=== PATIENT | male | born 1990 | race African-American/Black ===

== ENCOUNTER 2019-09-12 19:30 | Emergency (ER) | payer MEDICAID, SELFPAY ==
[2019-09-12 19:31] VITALS: BP 125/73; PULSE 89; RESP 16; TEMP 36.4; O2SAT 100; BMI 23.8
--- NOTE | 2019-09-12 19:46 | ECG_ITS ---
APPROVED REPORT Exam: Resting ECG HR:74 bpm ECG Measurements Heart Rate 74 AXES DC 138 P 76 QRSd 90 QRS 66 QT 344 T 41 QTc 381 <Conclusion> Normal sinus rhythm Normal ECG Electronically signed by : Srini Meehan, 09/14/2019 14:16:49
--- NOTE | 2019-09-12 19:54 | XR_ITS ---
PROCEDURE: XR CHEST 2V CLINICAL HISTORY: dizziness COMPARISON: CXR2 CHEST-AP VIEW ONLY from 03/28/2013 FINDINGS: The cardiomediastinal silhouette and pulmonary vascularity are within normal limits. Thoracolumbar scoliosis convex right unchanged. Calcified granuloma noted in the left lower lobe. No lobar consolidation or collapse. No acute bony abnormalities. IMPRESSION: No change with no acute finding Dictated by: George Noel MD 09/12/2019 22:23 Electronically signed by George Noel MD in [place] 09/12/2019 22:23
--- NOTE | 2019-09-12 19:55 | CT_ITS ---
PROCEDURE: CT HEAD/BRAIN WO CON CLINICAL INDICATION: dizziness x2 weeks COMPARISON: HDWO CT HEAD W/O CONTRAST from 03/28/2013 TECHNIQUE: Axial images obtained. All CT scans at the facility use one or more dose reduction, viz: automated exposure control, ma/kV adjustment per patient size (including targeted exams where dose is matched to indication, i.e. head), or iterative reconstruction technique. FINDINGS: No midline shift, mass effect, intracranial hemorrhage, hydrocephalus, or extra-axial fluid collection is evident. The calvarium has an unremarkable appearance. No mastoid effusion. No sinus air-fluid level. IMPRESSION: No acute intracranial finding Dictated by: George Noel MD 09/12/2019 22:31 Electronically signed by George Noel MD in [place] 09/12/2019 22:31
[2019-09-12 20:02] LABS: Chloride 97 mmol/L (98-107); Sodium 140 mmol/L (136-145)
[2019-09-12 20:03] LABS: Basophils # 0.3 K/mm3 (0-0.2); Basophils % 3.8 % (0.1-2.0); Eosinophils # 0.3 K/mm3 (0.0-0.4); Eosinophils % 4.5 % (0.1-12.0); Lymphocytes # 1.3 K/mm3 (0.7-4.5); Lymphocytes % 19.6 % (10-50); Mean Corpuscular HGB Conc 33.3 g/dL (31.8-35.4); Mean Corpuscular Hemoglobin 30.5 pg (27.0-31.2); Mean Corpuscular Volume 91.5 fl (80-94); Mean Platelet Volume 6.8 fl (7.4-10.4); Monocytes # 0.4 K/mm3 (0.1-1.0); Monocytes % 5.9 % (1.7-9.3); Neutrophils # 4.3 K/mm3 (1.8-7.8); Neutrophils % 66.2 % (37.0-80.0); Platelet Count 339 K/mm3 (142-424); Potassium 3.1 mmoL/L (3.5-5.1); Red Blood Count 5.25 M/mm3 (4.60-6.20); Red Cell Distribution Width 12.9 % (11.5-17.5); White Blood Count 6.5 K/mm3 (4.8-10.8)
[2019-09-12 20:05] LABS: Blood Urea Nitrogen 8 mg/dl (9-20); Creatinine Clearance Estimated 112 mL/min (50-200); Estimated Glomerular Filt Rate 113 ml/min (>60); GFR (African American) 136 ML/MIN (>60)
[2019-09-12 20:06] LABS: Anion Gap 7.1 mEq/L (5-15); Carbon Dioxide 39 mmol/L (22.0-30.0); Glucose 89 mg/dl (74-100)
--- NOTE | 2019-09-12 20:15 | HMH.EDDIZZ ---
ED Disposition Clinical Impression: Benign paroxysmal positional vertigo Qualifiers: Laterality: bilateral Qualified Code(s): H81.13 - Benign paroxysmal vertigo, bilateral Disposition: Home, Self-Care Condition on Discharge: Good Instructions: Dizziness, Nonvertigo Additional Instructions: fluids and see pcp for follow up Prescriptions: Meclizine HCl [Antivert 12.5mg tablet] 12.5 mg PO TID #10 tab Transmission Status: Pending to [facility] Referrals: Gill Grimaldo APRN [Primary Care Provider] - - Critical Care Critical Care Time: No Attestation: On 09/12/19, the high probability of a clinically significant, sudden or life threatening deterioration of the following system(s) required my full and direct attention, intervention and personal management. The time I documented below is in addition to time spent performing reported procedures but includes the following listed in this critical care notation. Medical Decision Making - Medical Records Medical records reviewed: Yes: I reviewed the patient's medical records. - Aryan Inquiry Pt receiving controlled substance: No Vital Signs: 09/12/19 19:31 09/12/19 21:22 09/12/19 22:03 Temperature 97.6 F Temperature Source Oral Pulse Rate [Left Radial] 89 78 79 Respiratory Rate 16 Blood Pressure [Right Arm] 125/73 128/81 115/69 Blood Pressure Mean [Right Arm] 90 96 84 Blood Pressure Source [Right Arm] Automatic Cuff Automatic Cuff Automatic Cuff Blood Pressure Position [Right Arm] Sitting Supine Supine 02 Sat by Pulse Oximetry 100 98 100 Oxygen Delivery Method Room Air Room Air Room Air - Lab Data Lab results reviewed: Yes: I reviewed the patient's lab results. Lab Results 09/12/19 19:52: WBC 6.5, RBC 5.25, Hgb 16.0, Hct 48.0, MCV 91.5, MCH 30.5, MCHC 33.3, RDW 12.9, Plt Count 339, MPV 6.8 L, Neut % (Auto) 66.2, Lymph % (Auto) 19.6, [place] % (Auto) 5.9, Eos % (Auto) 4.5, Baso % (Auto) 3.8 H, Neut # (Auto) 4.3, Lymph # (Auto) 1.3, [place] # (Auto) 0.4, Eos # (Auto) 0.3, Baso # (Auto) 0.3 H 09/12/19 19:52: Sodium 140, Potassium 3.1 L, Chloride 97 L, Carbon Dioxide 39 H, Anion Gap 7.1, BUN 8 L, Creatinine 0.80, Estimated Creat Clear 112, Estimated GFR 113, Est GFR ( Amer) 136, Glucose 89, Calcium 9.0, Troponin I < 0.01 09/12/19 20:35: Urine Color Yellow, Urine Appearance Clear, Urine pH 6.0, Ur Specific [place] >= 1.030, Urine Protein Negative, Urine Glucose (UA) Negative, Urine Ketones Negative, Urine Blood Negative, Urine Nitrate Negative, Urine Bilirubin Negative, Urine Urobilinogen 0.2, Ur Leukocyte Esterase Negative, Urine WBC Occasional, Ur Squamous Epith Cells Occasional, Urine Bacteria Trace, Urine Mucus Trace 09/12/19 20:35: Urine Opiates Screen Negative, Urine Methadone Screen Negative, Ur Barbituates Screen Negative, Ur Phencyclidine Scrn Negative, Ur Amphetamines Screen , U Benzodiazepines Scrn Negative, Urine Cocaine Screen Negative, U Marijuana (THC) Screen Negative Result diagrams: 09/12/19 19:52 09/12/19 19:52 Orders (Tests/Meds): ED MEDICATIONS Generic Name Dose Route Start Last Admin Trade Name Freq PRN Reason Stop Dose Admin Sodium Chloride 1,000 mls @ 999 mls/hr 09/12/19 20:00 09/12/19 19:57 Sod Chlor 0.9% 1000ml Bag IV 09/12/19 21:00 999 mls/hr .Q1H1M NIKKO Administration ORDERS Category Date Time Status CT head/brain wo con Stat Cat Scan 09/12/19 19:55 Taken Troponin I Q3H Lab 09/12/19 23:00 Ordered Troponin I Q3H Lab 09/13/19 02:00 Ordered - Radiology Data #1 Image(s): Chest Image Reviewed: Yes I reviewed the patient's radiology image Preliminary Findings: Normal/NAD - CT Data CT Scan: Head Time Received: 22:[address] Reviewed: Yes: I have viewed the radiologist's interpretation Preliminary Findings: Normal/NAD - ECG Data Tracing #1 Normal Sinus Rhythm: Yes Ischemic changes: non-specific ST-T wave changes Dizzy HPI - General Chief Complaint: Dizziness Stated Complain
[2019-09-12 20:29] LABS: Troponin I < 0.01 ng/ml (0.00-0.034)
[2019-09-12 20:43] LABS: Microscopic, Urine URINE MICROSCOPIC (MICROSCOPIC)
[2019-09-12 20:45] LABS: Appearance,Urine CLEAR (Clear); Bilirubin,Urine Negative (Negative); Blood, Urine Negative (Negative); Color,Urine YELLOW (Yellow); Glucose,Urine (UA) Negative (Negative); Ketones,Urine Negative (Negative); Leukocyte Esterase,Urine Negative (Negative); Nitrate,Urine Negative (Negative); Protein,Urine Negative (Negative); Specific Gravity, Urine >= 1.030 (1.005-1.030); Urobilinogen,Urine 0.2 EU/dl (0.2)
[2019-09-12 20:57] LABS: Benzodiazepines Screen,Urine Negative ng/ml (<200)
[2019-09-12 20:59] LABS: Barbiturates Screen,Urine Negative ng/ml (<200); Cannabinoid Screen,Urine Negative ng/ml (<50)
[2019-09-12 21:00] LABS: Cocaine Screen,Urine Negative ng/ml (<300)
[2019-09-12 21:01] LABS: Methadone Screen,Urine Negative ng/ml (<300); Opiate Screen,Urine Negative ng/ml (<300)
[2019-09-12 21:02] LABS: Bacteria,Urine Trace /lpf; Mucus,Urine Trace /lpf; Phencyclidine Screen,Urine Negative ng/ml (<25); Squamous Epithelial Cell,Urine Occasional #/hpf (0-5); WBC,Urine Occasional #/hpf (0-3)
[2019-09-12 21:22] VITALS: BP 128/81; PULSE 78; O2SAT 98
[2019-09-12 22:03] VITALS: BP 115/69; PULSE 79; O2SAT 100
[2019-09-12 22:48] VITALS: BP 132/74; PULSE 83; RESP 16; TEMP 36.7; O2SAT 98
[2019-09-16 15:09] LABS: Amphetamine Positive (.); Amphetamines Positive (.); Methamphetamine Positive (.)
[2019-09-17 15:35] LABS: Amphetamine (GC/MS) >4000 ng/mL (Cutoff=500); Methamphetamine (GC/MS) >4000 ng/mL (Cutoff=500)
== END 2019-09-12 22:50 | disposition home or self-care (01) ==
PROVIDERS: Emergency Provider Emergency Medicine; PCP Nurse Practitioner
DX: H81.13 Benign paroxysmal vertigo, bilateral (principal)
CPT/HCPCS: 70450; 71046; 80048; 80305; 80324; 81001; 84484; 85025; 93005; 96365; 99284

== ENCOUNTER 2020-11-27 20:47 | Emergency (ER) | payer MEDICAID, SELFPAY ==
[2020-11-27 20:48] VITALS: BP 130/80; PULSE 100; RESP 18; TEMP 36.6; O2SAT 100; BMI 21.6
--- NOTE | 2020-11-27 21:39 | HMH.EDMCLR ---
ED Disposition Clinical Impression: Medical clearance for incarceration Disposition: Home, Self-Care Condition on Discharge: Good Instructions: DI for Substance Use Disorder Additional Instructions: see pcp for follow up Referrals: Lucero Myers APRN [Primary Care Provider] - - Critical Care Critical Care Time: No Attestation: On 11/27/20, the high probability of a clinically significant, sudden or life threatening deterioration of the following system(s) required my full and direct attention, intervention and personal management. The time I documented below is in addition to time spent performing reported procedures but includes the following listed in this critical care notation. Medical Decision Making - Medical Records Medical records reviewed: Yes: I reviewed the patient's medical records. - Aryan Inquiry Pt receiving controlled substance: No Vital Signs: 11/27/20 20:48 Temperature 97.8 F Temperature Source Oral Pulse Rate [Right] 100 H Respiratory Rate 18 Blood Pressure [Right Arm] 130/80 Blood Pressure Mean [Right Arm] 96 02 Sat by Pulse Oximetry 100 Medical Clearance HPI - General Chief complaint: Medical Clearance Stated complaint: mEDICAL CLEARANCE Time Seen by Provider: 11/27/20 21:39 Mode of Arrival: Ambulatory Source of Information: Patient, Medical Record Description of Symptoms (Recalled from ER Triage Doc. by RN): pt here for medical clerance pt has a spider bite from 2 days ago on back of lt calf - History of Present Illness HPI Narrative: no specific c/o except small area on lt lower leg - reported as insect bite MD complaint: medical clearance requested Reason for Medical Clearance: medical condition Place: home Traumatic Symptoms: denies traumatic injury Associated Symptoms: denies other symptoms Treatments Prior to Arrival: none Home medications: Previous Rx's Medication Instructions Recorded amoxicillin 875 mg-potassium 1 tab PO Q12H 10 Days #20 tab 05/08/20 clavulanate 125 mg tablet Allergies/Adverse reactions: Allergies Allergy/AdvReac Type Severity Reaction Status Date / Time levofloxacin [From LEVAQUIN] Allergy Intermediate I-RASH Verified 05/08/20 18:33 Milk Containing Products Allergy Verified 05/08/20 18:33 [facility] History - Hepatitis A Screen Drug use history?: No High risk sexual behaviors?: No History of sexually transmitted infection?: No Currently employed?: No Childcare worker?: No Do you have indoor plumbing?: Yes Do you have electricity?: Yes Attestation statement:: This patient has been screened for Hepatitis A risk factors. I have reviewed the patient's past medical history: Yes Medical History: Denies:: Cancer, Diabetes Mellitus Type 1, Diabetes Mellitus Type 2, MRSA Other Surgeries: Yes: Colonoscopy Amputation: No Fractures: No - Social History Smoking Status: Current every day smoker Tobacco Type: cigarettes # Packs/Day (cigarettes): 1 Alcohol Intake: never Alcohol Intake Frequency:: a few times a week Substance Use Type: denies use Occupational Status: employed Family Hx:: Non-contributory ROS Obtained: Yes All systems reviewed & no additional complaints - Constitutional Constitutional: Denies fever(s) - Eyes Eyes: Denies change in vision - ENT Ears, Nose, Mouth, and Throat: Denies sore throat - Cardiovascular Cardiovascular: Denies chest pain, Denies dyspnea - Respiratory Respiratory: Denies shortness of breath - Gastrointestinal Gastrointestingal: Denies: abdominal pain - Genitourinary Male Genitourinary: Denies flank pain - Musculoskeletal Musculoskeletal: Denies joint pain - Integumentary/Breasts Skin/Breast: Reports as per HPI, Reports boil - Neurologic Neurologic: Denies headache(s), Denies seizure-like activity Physical Exam - General General appearance: alert - Head Head exam: normocephalic - Eye Eye exam: Present: PERRL, EOMI - ENT ENT exam: Present: muc
[2020-11-27 21:52] VITALS: BP 125/79; PULSE 97; RESP 18; TEMP 36.6; O2SAT 100
== END 2020-11-27 21:54 | disposition home or self-care (01) ==
PROVIDERS: Emergency Provider Emergency Medicine; PCP Nurse Practitioner Family
DX: S80.862A Insect bite (nonvenomous), left lower leg, initial encounter (principal); W57.XXXA Bitten or stung by nonvenomous insect and other nonvenomous arthropods, initial encounter
CPT/HCPCS: 99282

== ENCOUNTER 2021-03-28 02:38 | Emergency (ER) | payer MEDICAID, SELFPAY ==
[2021-03-28 02:41] VITALS: BP 133/81; PULSE 108; RESP 16; TEMP 36.6; O2SAT 98; BMI 21.4
[2021-03-28 03:33] LABS: Basophils # 0.1 K/mm3 (0-0.2); Eosinophils # 0.3 K/mm3 (0.0-0.4); Eosinophils % 3.5 % (0.1-12.0); Hematocrit 42.1 % (42.0-52.0); Hemoglobin 13.4 g/dL (14.1-18.0); Lymphocytes # 1.8 K/mm3 (0.7-4.5); Lymphocytes % 23.9 % (10-50); Mean Corpuscular HGB Conc 31.7 g/dL (31.8-35.4); Mean Corpuscular Hemoglobin 27.8 pg (27.0-31.2); Mean Corpuscular Volume 87.6 fl (80-94); Mean Platelet Volume 7.3 fl (7.4-10.4); Monocytes # 0.4 K/mm3 (0.1-1.0); Monocytes % 5.6 % (1.7-9.3); Neutrophils % 66.1 % (37.0-80.0); Platelet Count 505 K/mm3 (142-424); Red Blood Count 4.81 M/mm3 (4.60-6.20); Red Cell Distribution Width 13.6 % (11.5-17.5); White Blood Count 7.6 K/mm3 (4.8-10.8)
[2021-03-28 03:39] LABS: Alanine Aminotransferase 17 U/L (12-78); Albumin Level 3.8 g/dl (3.5-5.0); Albumin/Globulin Ratio 1.1 (1.1-1.8); Alkaline Phosphatase 80 U/L (38-126); Anion Gap 9.8 mEq/L (5-15); Aspartate Amino Transferase 25 U/L (17-59); Blood Urea Nitrogen 12 mg/dl (9-20); Calcium 9.5 mg/dl (8.4-10.2); Carbon Dioxide 32 mmol/L (22.0-30.0); Chloride 100 mmol/L (98-107); Creatinine Clearance Estimated 94 mL/min (50-200); Estimated Glomerular Filt Rate 98 ml/min (>60); GFR (African American) 118 ML/MIN (>60); Globulin 3.5 g/dL (1.3-3.2); Glucose 127 mg/dl (74-100); Potassium 3.8 mmoL/L (3.5-5.1); Sodium 138 mmol/L (136-145); Total Protein,Serum 7.3 g/dl (6.3-8.2)
[2021-03-28 03:43] LABS: Bilirubin,Total < 0.1 mg/dl (0.2-1.3)
[2021-03-28 03:44] LABS: C-Reactive Protein 6.8 mg/L (0-4)
--- NOTE | 2021-03-28 03:49 | HMH.EDGENADL ---
ED Disposition Clinical Impression: Pyoderma gangrenosum Disposition: Home, Self-Care Condition on Discharge: Good Additional Instructions: Use topical steroid as prescribed. Follow-up with GI, dermatology, and surgery along with your primary care doctor. Return to the emergency department for any new or worsening symptoms. Prescriptions: Clobetasol Propionate/Emoll [Clobetasol Emollient 0.05% Crm] 60 gm TP BID #60 gm Transmission Status: Pending to [facility] Referrals: Provider,MD Bibi [Primary Care Provider] - Jagdeep Rae MD [Staff Physician] - Becky Ross MD [Referring] - Alverto Maldonado MD [Staff Physician] - - Critical Care Critical Care Time: No Attestation: On 03/28/21, the high probability of a clinically significant, sudden or life threatening deterioration of the following system(s) required my full and direct attention, intervention and personal management. The time I documented below is in addition to time spent performing reported procedures but includes the following listed in this critical care notation. Medical Decision Making - Aryan Inquiry Pt receiving controlled substance: No Vital Signs: 03/28/21 02:41 Temperature 98 F Temperature Source Oral Pulse Rate [Left] 108 H Respiratory Rate 16 Blood Pressure [Right Arm] 133/81 Blood Pressure Mean [Right Arm] 98 02 Sat by Pulse Oximetry 98 - Lab Data Lab Results 03/28/21 03:19: WBC 7.6, RBC 4.81, Hgb 13.4 L, Hct 42.1, MCV 87.6, MCH 27.8, MCHC 31.7 L, RDW 13.6, Plt Count 505 H, MPV 7.3 L, Neut % (Auto) 66.1, Lymph % (Auto) 23.9, [place] % (Auto) 5.6, Eos % (Auto) 3.5, Baso % (Auto) 1.0, Neut # (Auto) 5.0, Lymph # (Auto) 1.8, [place] # (Auto) 0.4, Eos # (Auto) 0.3, Baso # (Auto) 0.1, ESR 13 03/28/21 03:19: Sodium 138, Potassium 3.8, Chloride 100, Carbon Dioxide 32 H, Anion Gap 9.8, BUN 12, Creatinine 0.90, Estimated Creat Clear 94, Estimated GFR 98, Est GFR ( Amer) 118, Glucose 127 H, Calcium 9.5, Total Bilirubin < 0.1 L, AST 25, ALT 17, Alkaline Phosphatase 80, C-Reactive Protein 6.8 H, Total Protein 7.3, Albumin 3.8, Globulin 3.5 H, Albumin/Globulin Ratio 1.1 Result diagrams: 03/28/21 03:19 03/28/21 03:19 Medical Decision Narrative: In summary this is a 30-year-old male with history of ulcerative colitis who presents to the emergency department for concern for infection of spider bite on left lower leg. Differential diagnosis includes cellulitis, abscess, spider bite, skin manifestation of UC. Given this plan to obtain CBC, CMP, CRP and reassess. CRP very mildly elevated however the patient has no leukocytosis and labs are otherwise unremarkable. The patient's physical exam is concerning for pyoderma gangrenosum. He also complains of swelling in his hands concerning for arthritis related to UC. The patient has not seen a occupational therapy director since high school. Given this we will refer him to GI as well as dermatology and surgery for evaluation of this wound. We will also give topical steroids. All this was discussed with the patient and his questions were answered. He was given strict return precautions and discharged. General Adult HPI - General Chief complaint: Allergic Reaction Stated complaint: Infected Spider bite left leg Time Seen by Provider: 03/28/21 02:50 Mode of Arrival: Ambulatory Limitations: No Limitations Description of Symptoms (Recalled from ER Triage Doc. by RN): pt reports he was bit by a spider on his left leg a few days ago was seen at the [facility]. pt states they told him to come here to recieve antibiodic via iv. pt does have a large area that does appear inflamed red hot and the skin is scabbed over. pt also reports to have swollen hands - History of Present Illness HPI narrative: The patient is a 30-year-old male with history of ulcerative colitis who presents to the emergency department with spider bite to his left lower extremity. He reports that he received a spider bi
[2021-03-28 04:05] LABS: Erythrocyte Sedimentation Rate 13 mm/hr (0-15)
[2021-03-28 04:30] VITALS: BP 133/71; PULSE 112; RESP 16; TEMP 36.6; O2SAT 97
== END 2021-03-28 04:32 | disposition home or self-care (01) ==
PROVIDERS: Emergency Provider Emergency Medicine
DX: L88 Pyoderma gangrenosum (principal); K51.90 Ulcerative colitis, unspecified, without complications; F17.210 Nicotine dependence, cigarettes, uncomplicated
CPT/HCPCS: 80053; 85025; 85651; 86140; 99281

== ENCOUNTER 2021-05-14 22:11 | Emergency (ER) | payer MEDICAID, SELFPAY ==
[2021-05-14 22:14] VITALS: BP 169/93; PULSE 121; RESP 16; TEMP 36.9; O2SAT 98; BMI 22.3
[2021-05-14 22:45] LABS: Basophils # 0.1 K/mm3 (0-0.2); Eosinophils # 0.1 K/mm3 (0.0-0.4); Hematocrit 35.6 % (42.0-52.0); Hemoglobin 11.1 g/dL (14.1-18.0); Monocytes # 0.5 K/mm3 (0.1-1.0)
[2021-05-14 22:50] LABS: Basophils % 0.8 % (0.1-2.0); Eosinophils % 1.5 % (0.1-12.0); Lymphocytes # 1.6 K/mm3 (0.7-4.5); Lymphocytes % 17.3 % (10-50); Mean Corpuscular HGB Conc 31.1 g/dL (31.8-35.4); Mean Corpuscular Hemoglobin 26.6 pg (27.0-31.2); Mean Corpuscular Volume 85.5 fl (80-94); Mean Platelet Volume 7.7 fl (7.4-10.4); Monocytes % 5.1 % (1.7-9.3); Neutrophils # 6.8 K/mm3 (1.8-7.8); Neutrophils % 75.2 % (37.0-80.0); Platelet Count 739 K/mm3 (142-424); Red Blood Count 4.16 M/mm3 (4.60-6.20); White Blood Count 9.1 K/mm3 (4.8-10.8)
[2021-05-14 22:51] LABS: Alanine Aminotransferase 22 U/L (12-78); Albumin Level 3.8 g/dl (3.5-5.0); Alkaline Phosphatase 86 U/L (38-126); Anion Gap 9.4 mEq/L (5-15); Aspartate Amino Transferase 28 U/L (17-59); Bilirubin,Total 0.3 mg/dl (0.2-1.3); Blood Urea Nitrogen 12 mg/dl (9-20); Calcium 9.2 mg/dl (8.4-10.2); Carbon Dioxide 31 mmol/L (22.0-30.0); Chloride 101 mmol/L (98-107); Creatinine Clearance Estimated 98 mL/min (50-200); Estimated Glomerular Filt Rate 98 ml/min (>60); GFR (African American) 118 ML/MIN (>60); Globulin 3.8 g/dL (1.3-3.2); Glucose 115 mg/dl (74-100); Potassium 3.4 mmoL/L (3.5-5.1); Sodium 138 mmol/L (136-145); Total Protein,Serum 7.6 g/dl (6.3-8.2)
[2021-05-14 22:52] LABS: Lactic Acid 0.8 mmol/L (0.7-2.1)
[2021-05-14 22:56] LABS: C-Reactive Protein 13.2 mg/L (0-4)
[2021-05-14 23:08] VITALS: BP 136/88; PULSE 119; O2SAT 99
[2021-05-14 23:10] LABS: Procalcitonin 0.211 ng/mL (0.0-2.0)
[2021-05-14 23:11] LABS: Erythrocyte Sedimentation Rate 54 mm/hr (0-15)
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
--- NOTE | 2021-05-14 23:53 | XR_ITS ---
PROCEDURE INFORMATION: Exam: XR Chest Exam date and time: 05/14/2021 11:53 PM Age: 30 years old Clinical indication: Other: Possible infection/sepsis TECHNIQUE: Imaging protocol: XR of the chest. Views: 2 views. COMPARISON: CR XR CHEST 2V 09/12/2019 7:55 PM FINDINGS: Lungs: Calcified granulomas in the left lung. No consolidation. No overt pulmonary edema. Pleural spaces: No pleural effusion. No pneumothorax. Heart/Mediastinum: Normal heart size. Bones/joints: Scoliosis, with a marked dextroconvex rotatory thoracic curvature, as seen previously. IMPRESSION: No acute finding. No interval change since 09/12/2019.
--- NOTE | 2021-05-15 00:03 | PC.NURSE ---
Pt gone to rad
[2021-05-15 00:06] LABS: Microscopic, Urine URINE MICROSCOPIC (MICROSCOPIC)
[2021-05-15 00:07] LABS: Appearance,Urine SL CLOUDY (Clear); Blood, Urine Negative (Negative); Color,Urine YELLOW (Yellow); Glucose,Urine (UA) Negative (Negative); Ketones,Urine TRACE (Negative); Leukocyte Esterase,Urine Negative (Negative); Nitrate,Urine Negative (Negative); Protein,Urine 1+ (Negative); Specific Gravity, Urine >= 1.030 (1.005-1.030); Urobilinogen,Urine 0.2 EU/dl (0.2)
--- NOTE | 2021-05-15 00:08 | PC.NURSE ---
Pt back from rad
[2021-05-15 00:15] LABS: Bacteria,Urine 2+ /lpf; Bilirubin,Urine Negative (Negative); Mucus,Urine 3+ /lpf; Sperm,Urine 1+ /lpf; Squamous Epithelial Cell,Urine Occasional #/hpf (0-5)
[2021-05-15 00:18] LABS: Barbiturates Screen,Urine Negative ng/ml (<200); Benzodiazepines Screen,Urine Negative ng/ml (<200)
[2021-05-15 00:19] LABS: Cannabinoid Screen,Urine Negative ng/ml (<50); Cocaine Screen,Urine Negative ng/ml (<300)
[2021-05-15 00:20] LABS: Methadone Screen,Urine Negative ng/ml (<300)
[2021-05-15 00:21] LABS: Opiate Screen,Urine Negative ng/ml (<300)
[2021-05-15 00:22] LABS: Phencyclidine Screen,Urine Negative ng/ml (<25)
[2021-05-15 01:24] VITALS: BP 135/79; PULSE 113; RESP 18; TEMP 36.7; O2SAT 98
[2021-05-28 08:15] LABS: Amphetamine Positive (.); Amphetamine (GC/MS) >3000 ng/mL (Cutoff=500); Amphetamines Positive (.); Methamphetamine Positive (.); Methamphetamine (GC/MS) >3000 ng/mL (Cutoff=500)
== END 2021-05-15 01:46 | disposition home or self-care (01) ==
PROVIDERS: Emergency Provider Emergency Medicine
DX: B34.2 Coronavirus infection, unspecified (principal); F15.10 Other stimulant abuse, uncomplicated; L03.114 Cellulitis of left upper limb; L03.113 Cellulitis of right upper limb; L03.116 Cellulitis of left lower limb; F17.210 Nicotine dependence, cigarettes, uncomplicated
CPT/HCPCS: 71046; 80053; 80305; 80324; 81001; 83605; 84145; 85025; 85651; 86140; 87040; 87086; 99283; C9803; U0003; U0005

== ENCOUNTER 2022-11-24 09:10 | Emergency (ER) | payer MEDICAID, SELFPAY ==
[2022-11-24 09:11] VITALS: BP 144/96; PULSE 98; RESP 18; TEMP 36.6; O2SAT 100; BMI 24.9
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
[2022-11-24 10:36] VITALS: BP 144/96; PULSE 98; RESP 18; TEMP 36.6; O2SAT 100
== END 2022-11-24 10:36 | disposition home or self-care (01) ==
PROVIDERS: Emergency Provider Nurse Practitioner Family
DX: S09.90XA Unspecified injury of head, initial encounter (principal); R51.9 Headache, unspecified; Y04.2XXA Assault by strike against or bumped into by another person, initial encounter; F17.210 Nicotine dependence, cigarettes, uncomplicated
CPT/HCPCS: 70150; 99204; 99212; G0463

== ENCOUNTER 2022-12-13 21:43 | Emergency (ER) | payer MEDICAID, SELFPAY ==
[2022-12-13 21:44] VITALS: BP 129/86; PULSE 113; RESP 18; TEMP 36.8; O2SAT 98; BMI 24.9
--- NOTE | 2022-12-13 22:02 | HMH.EDGENADL ---
Discharge Plan Disposition Patient Disposition: Home, Self-Care Condition: Good Chief Complaint: Eye Problems Prescriptions Prescriptions: No Action clindamycin HCl 300 MG capsule 300 mg PO TID ibuprofen 800 MG tablet 800 mg PO Q8HP PRN (Reason: Moderate Pain) sulfamethoxazole-trimethoprim 1 EACH tablet 1 each PO BID acetaminophen 500 MG tablet 500 mg PO Q6 methocarbamol 750 MG tablet 750 mg PO TID melatonin-pyridoxine (vit B6) 1 EACH tablet 1 each PO HS lofexidine 0.18 MG tablet 3 tab PO TID Referrals Follow up/Referrals: David Saeed OD [Referring] - See instructions Clinical Impressions Clinical Impression: Acute bacterial conjunctivitis of left eye Instructions Patient Instructions: Conjunctivitis Discharge ED Provider: Azam Mccartney General Adult HPI General Chief complaint: Eye Problems Stated complaint: eye infection Time Seen by Provider: 12/13/22 21:52 History of Present Illness HPI narrative: 32-year-old male with a history of gout, rheumatoid arthritis, UC who presents to the ED with complaints of left eye pain. Patient notes that he left his contacts and for several days prior to removing it yesterday. This morning, patient woke up and since then he has been having progressively worsening pain in his left eye, with associated erythema, chemosis, and photophobia. Patient notes that his symptoms progressively worsened through the day, which made him come to the ED tonight. Related Data Home Medications Medication Instructions Recorded Confirmed acetaminophen 500 mg tablet 500 mg PO Q6 Pain 05/14/21 05/14/21 clindamycin HCl 300 mg capsule 300 mg PO TID Infection 05/14/21 05/14/21 ibuprofen 800 mg tablet 800 mg PO Q8HP PRN Moderate Pain 05/14/21 05/14/21 lofexidine 0.18 mg tablet 3 tab PO TID detox 05/14/21 05/14/21 melatonin 5 mg-pyridoxine (vitamin 1 each PO HS sleep 05/14/21 05/14/21 B6) 1 mg tablet methocarbamol 750 mg tablet 750 mg PO TID muscle pain 05/14/21 05/14/21 sulfamethoxazole 800 1 each PO BID Infection 05/14/21 05/14/21 mg-trimethoprim 160 mg tablet Allergies Allergy/AdvReac Type Severity Reaction Status Date / Time levofloxacin [From LEVAQUIN] Allergy Intermediate I-RASH Verified 03/26/21 12:32 Milk Containing Products Allergy Verified 03/26/21 12:32 (Dairy) [Milk Containing Products] [facility] Disclaimer: The information contained in this section may have been updated after the patient was seen, as this information can be updated by other users. Social History Smoking Status: Current every day smoker tobacco type: cigarettes packs per day: 1 alcohol intake: never substance use type: denies use current occupational status: other Travel in the last 8 weeks: None ROS Obtained: Yes All systems reviewed & no additional complaints except as documented Physical Exam General General appearance: alert and in no apparent distress Head Head exam: atraumatic, normocephalic and normal inspection Eye Eye exam: Present normal appearance, PERRL, EOMI and conjunctival redness (Left eye chemosis and conjunctivitis); Absent scleral icterus or nystagmus ENT ENT exam: Present normal exam, mucous membranes moist and normal external ear exam Neck Neck exam: Present normal inspection, full ROM and trachea midline Chest Chest inspection: Present normal inspection and symmetric chest wall rise; Absent tenderness Respiratory Respiratory exam: Present normal lung sounds bilaterally; Absent respiratory distress, wheezes or accessory muscle use Cardiovascular Cardiovascular exam: Present regular rate, normal rhythm and normal heart sounds Abdominal Exam Abdominal exam: Present soft; Absent distention, tenderness, guarding, rebound, rigidity, trauma, ascites or pulsatile mass exam: Present deferred Extremities Exam Extremities exam: Present normal inspection and full ROM; Absent tenderness Back Exam B
[2022-12-13 22:30] VITALS: BP 137/85; PULSE 78; RESP 20; O2SAT 100
[2022-12-13 22:56] VITALS: BP 131/72; PULSE 71; RESP 18; TEMP 36.8; O2SAT 100
== END 2022-12-13 22:57 | disposition home or self-care (01) ==
PROVIDERS: Emergency Provider Emergency Medicine
DX: H10.31 Unspecified acute conjunctivitis, right eye (principal); M06.9 Rheumatoid arthritis, unspecified; M10.9 Gout, unspecified; F17.210 Nicotine dependence, cigarettes, uncomplicated
CPT/HCPCS: 99283

== ENCOUNTER 2023-02-10 14:42 | Emergency (ER) | payer MEDICAID, SELFPAY ==
[2023-02-10 15:00] VITALS: BP 140/87; PULSE 86; RESP 18; TEMP 36.8; O2SAT 100; BMI 24.0
--- NOTE | 2023-02-10 15:00 | EXP.UTC ---
Discharge Plan Disposition Patient Disposition: Home, Self-Care Condition: Good Prescriptions Prescriptions: New sulfamethoxazole-trimethoprim [Bactrim DS] 800-160 mg Tablet 1 tab PO BID Qty: 20 0RF cephalexin 500 mg capsule 500 mg PO QID Qty: 40 0RF mupirocin 2 % ointment 1 applic topical TID 7 Days Qty: 15 0RF Referrals Follow up/Referrals: Provider,Referral, MD [Primary Care Provider] - See instructions Activity Restrictions/Add. Instructions Additional Instructions/Restrictions: Keep the affected area clean and dry. Follow up with your regular doctor. Take the antibiotics as directed and apply the topical antibiotics as directed. GO TO THE ER FOR ANY WORSENING SYMPTOMS Clinical Impressions Clinical Impression: Abscess of left thumb, Cellulitis of left thumb Instructions Patient Instructions: Cellulitis, DI for Skin Abscess Discharge ED Provider: Dave Logan [facility] [place] General Stated complaint: AO10/@work, possible infected Lt thumb Time Seen by Provider: 02/10/23 15:00 History of Present Illness Provider Complaint: He states around 1 week ago he accidentally cut himself with a saw on his left thumb. It was a small cut, but since then it has began to swell and have redness surrounding it. He denies fever/chills. He is not a known diabetic. Related Data Previous Rx's Medication Instructions Recorded cephalexin 500 mg capsule 500 mg PO QID #40 caps 02/10/23 mupirocin 2 % topical ointment 1 applic topical TID 7 days #15 02/10/23 grams sulfamethoxazole 800 1 tab PO BID #20 tabs 02/10/23 mg-trimethoprim 160 mg tablet (Bactrim DS) Allergies Allergy/AdvReac Type Severity Reaction Status Date / Time levofloxacin [From LEVAQUIN] Allergy Intermediate I-RASH Verified 02/10/23 15:04 Milk Containing Products Allergy Verified 02/10/23 15:04 (Dairy) [Milk Containing Products] [facility] Disclaimer: The information contained in this section may have been updated after the patient was seen, as this information can be updated by other users. Social History Smoking Status: Current every day smoker tobacco type: cigarettes packs per day: 1 alcohol intake: never substance use type: denies use current occupational status: other Travel in the last 8 weeks: None ROS Obtained: Yes All systems reviewed & no additional complaints except as documented Constitutional Constitutional: Denies chills and Denies fever(s) Eyes Eyes: Denies eye discharge ENT Ears, Nose, Mouth, and Throat: Denies dizziness, Denies otalgia and Denies sore throat Cardiovascular Cardiovascular: Denies chest pain Respiratory Respiratory: Denies shortness of breath, Denies chest congestion, Denies cough, Denies stridor and Denies wheezing Gastrointestinal Gastrointestingal: Denies nausea or vomiting Musculoskeletal Musculoskeletal: Reports system reviewed and no additional complaints, except as documented and Denies arthralgias Integumentary/Breasts Skin/Breast: Reports as per HPI Neurologic Neurologic: Denies dizziness and Denies paresthesias Allergic/Immunologic Allergic/Immunologic: Denies wheezing Physical Exam General General appearance: alert and in no apparent distress Head Head exam: atraumatic, normocephalic and normal inspection Eye Eye exam: Present normal appearance, PERRL and EOMI ENT ENT exam: Present normal exam, normal oropharynx, mucous membranes moist, TM's normal bilaterally and normal external ear exam Neck Neck exam: Present normal inspection, full ROM and trachea midline; Absent meningismus or lymphadenopathy Chest Chest inspection: Present normal inspection and symmetric chest wall rise; Absent tenderness Respiratory Respiratory exam: Present normal lung sounds bilaterally; Absent respiratory distress Cardiovascular Cardiovascular exam: Present regular rate and normal rhythm; Absent JVD Abdominal Exam Abd
[2023-02-10 16:00] VITALS: BP 140/87; PULSE 86; RESP 18; TEMP 36.8; O2SAT 100
== END 2023-02-10 16:00 | disposition home or self-care (01) ==
PROVIDERS: Emergency Provider Nurse Practitioner Family
DX: L02.512 Cutaneous abscess of left hand (principal); B95.62 Methicillin resistant Staphylococcus aureus infection as the cause of diseases classified elsewhere; L03.012 Cellulitis of left finger; F17.210 Nicotine dependence, cigarettes, uncomplicated; B96.89 Other specified bacterial agents as the cause of diseases classified elsewhere
CPT/HCPCS: 87070; 87205; 96372; 99212; 99214; G0463; J0696

== ENCOUNTER 2023-07-06 13:30 | Emergency (ER) | payer MEDICAID, SELFPAY ==
[2023-07-06 13:50] VITALS: PULSE 103; RESP 20; TEMP 36.8; O2SAT 97; BMI 23.3
--- NOTE | 2023-07-06 13:58 | EXP.UTC ---
Discharge Plan Disposition Patient Disposition: Home, Self-Care Condition: Good Prescriptions Prescriptions: New azithromycin [Zithromax] 250 mg tablet 250 mg PO UD DOSE PK Qty: 6 0RF Rx Instructions: Take two (2) tablets today, then one (1) tablet days #2 thru #5 methylprednisolone 4 mg Tablets,Dose Pack 4 mg PO DIRECTED 6 Days Qty: 21 0RF Rx Instructions: Take 1 pack as directed for 6 days No Action buprenorphine-naloxone 8-2 mg tablet, sublingual 1 tab SUBLINGUAL DAILY Patient Comments: Place 1 tablet under tongue once a day Referrals Follow up/Referrals: Provider,Referral, MD [Primary Care Provider] - See instructions Activity Restrictions/Add. Instructions Additional Instructions/Restrictions: Drink plenty of fluids. Take tylenol or ibuprofen for pain or fever. Take the medications as directed. Follow up with your regular doctor. GO TO THE ER FOR ANY WORSENING SYMPTOMS Clinical Impressions Clinical Impression: Acute viral syndrome, Acute bronchitis Stand Alone Forms Stand Alone Forms: Work/School Release Instructions Patient Instructions: DI for Acute Bronchitis, DI for Viral Syndrome Discharge ED Provider: Dave Logan [facility] General Stated complaint: BONNER, soa Mode of Arrival: Ambulatory Source of Information: Patient Limitations: No Limitations Time Seen by Provider: 07/06/23 13:58 Description of Symptoms (Recalled from Triage Doc. by RN): PATIENT C/O SOA, BODY ACHES, RUNNY NOSE, COUGH AND SWEATS THAT STARTED YESTERDAY AFTERNOON HEENT Symptoms (Recalled from RN notes): Yes Resp Symptoms (Recalled from RN notes): Yes Skin Symptoms (Recalled from RN notes): No MS Symptoms (Recalled from RN notes): No Functional Status (Recalled from RN notes): WNL History of Present Illness Provider Complaint: He states that for the past 2 days he has had sore throat, low grade fever, malaise, cough, and chest congestion. Related Data Home Medications Medication Instructions Recorded Confirmed buprenorphine 8 mg-naloxone 2 mg 1 tab sublingual DAILY 07/06/23 07/06/23 sublingual tablet Previous Rx's Medication Instructions Recorded azithromycin 250 mg tablet 250 mg PO UD DOSE PK #6 tabs 07/06/23 (Zithromax) methylprednisolone 4 mg tablets in 4 mg PO DIRECTED 6 days #21 tabs 07/06/23 a dose pack Allergies Allergy/AdvReac Type Severity Reaction Status Date / Time levofloxacin [From LEVAQUIN] Allergy Intermediate I-RASH Verified 02/10/23 15:04 Milk Containing Products Allergy Verified 02/10/23 15:04 (Dairy) [Milk Containing Products] Worker's Comp Is this a Worker's Comp case?: No [facility] Disclaimer: The information contained in this section may have been updated after the patient was seen, as this information can be updated by other users. Social History Smoking Status: Current every day smoker tobacco type: cigarettes packs per day: 1 alcohol intake: never substance use type: denies use current occupational status: other Travel in the last 8 weeks: None ROS Obtained: Yes All systems reviewed & no additional complaints except as documented Constitutional Constitutional: Reports chills and Reports fever(s) Eyes Eyes: Denies eye discharge ENT Ears, Nose, Mouth, and Throat: Reports as per HPI Cardiovascular Cardiovascular: Denies chest pain Respiratory Respiratory: Reports chest congestion and Reports cough Gastrointestinal Gastrointestingal: Reports nausea; Denies abdominal pain, constipation, cramping, diarrhea or vomiting Musculoskeletal Musculoskeletal: Denies arthralgias Integumentary/Breasts Skin/Breast: Denies rash Neurologic Neurologic: Denies paresthesias Physical Exam General General appearance: alert and in no apparent distress Eye Eye exam: Present normal appearance, PERRL and EOMI ENT ENT exam: Present mucous membranes moist and normal external ear exam Expanded ENT Exam External ear exam: Present normal external inspection TM/Canal exam: Bilateral TM: erythema and bulging Nose exam: Absent sinus tenderness Nasal speculum exam: Bilateral: normal Mouth exam: Present normal external inspection; Absent drooling Teeth exam: Present normal inspection Throat exam: Present tonsillar erythema and tonsillomegaly Neck Neck exam: Present normal inspection, full ROM and trachea midline; Absent tenderness, lymphadenopathy or thyromegaly Chest Chest inspection: Present normal inspection and symmetric chest wall rise; Absent tenderness or rash Respiratory Respiratory exam: Present normal lung sounds bilaterally; Absent respiratory distress, wheezes, stridor or accessory muscle use Cardiovascular Cardiovascular exam: Present regular rate, normal rhythm and normal heart sounds Abdominal Exam Abdominal exam: Present soft; Absent distention, tenderness, guarding, rebound or rigidity Extremities Exam Extremities exam: Present normal inspection, full ROM and normal capillary refill; Absent tenderness or calf tenderness Back Exam Back exam: Present normal inspection and full ROM; Absent tenderness Neurological Exam Neurological exam: Present alert and oriented X3 Psychiatric Psychiatric exam: Present normal affect and normal mood Skin Skin exam: Present warm, dry, intact and normal color Lymphatic Lymphatic Findings: no adenopathy Medical Decision Making Medical Records Medical records reviewed: No I reviewed the patient's medical records. Aryan Inquiry Pt receiving controlled substance: No Vital Signs: 07/06/23 13:50 Temperature 98.3 F Temperature Source Oral Pulse Rate [Right] 103 H Respiratory Rate 20 02 Sat by Pulse Oximetry 97 Oxygen Delivery Method Room Air Lab Data Lab results reviewed: Yes I reviewed the patient's lab results.
[2023-07-06 14:09] LABS: UTC Influenza A Antigen Negative (Negative); UTC Influenza B Antigen Negative (Negative)
[2023-07-06 14:27] VITALS: BP 0/0; PULSE 103; RESP 20; TEMP 36.8; O2SAT 97
[2023-07-06 14:41] LABS: Coronavirus 19, PCR Not Detected (NotDetected); Influenza A, PCR Not Detected (NotDetected); Influenza B, PCR Not Detected (NotDetected)
== END 2023-07-06 14:36 | disposition home or self-care (01) ==
PROVIDERS: Emergency Provider Nurse Practitioner Family
DX: J20.9 Acute bronchitis, unspecified (principal); R50.9 Fever, unspecified; R07.0 Pain in throat; R05.9 Cough, unspecified; B34.9 Viral infection, unspecified; F17.210 Nicotine dependence, cigarettes, uncomplicated
CPT/HCPCS: 87636; 87804; 99212; 99214; G0463

== ENCOUNTER 2023-07-24 16:33 | Emergency (ER) | payer MEDICAID, SELFPAY ==
[2023-07-24 17:30] VITALS: BP 113/78; PULSE 78; RESP 18; TEMP 36.4; O2SAT 100; BMI 25.7
--- NOTE | 2023-07-24 17:33 | ED_ITS ---
Discharge Plan Disposition Patient Disposition: Home, Self-Care Condition: Good Prescriptions Prescriptions: New ondansetron 4 mg Tablet,Disintegrating 4 mg PO Q8H PRN (Reason: Nausea) Qty: 12 0RF No Action bupropion HCl [Wellbutrin XL] 150 mg tablet extended release 24 hr 150 mg PO DAILY Patient Comments: Take 1 tablet by mouth once a day buprenorphine-naloxone 8-2 mg tablet, sublingual 1 tab SUBLINGUAL DAILY Patient Comments: Place 1 tablet under tongue once a day Referrals Follow up/Referrals: Provider,Referral, MD [Primary Care Provider] - See instructions Activity Restrictions/Add. Instructions Additional Instructions/Restrictions: Drink plenty of fluids. Take tylenol for pain or fever. Take the zofran (ondesetron) as directed for nausea/vomiting. Follow up with your regular doctor. GO TO THE ER FOR ANY WORSENING SYMPTOMS Clinical Impressions Clinical Impression: Gastroenteritis, Acute viral syndrome Stand Alone Forms Stand Alone Forms: Work/School Release Instructions Patient Instructions: Viral Gastroenteritis, DI for Viral Gastroenteritis -- Adult, Ondansetron Discharge ED Provider: Dave Logan [facility] [place] General Stated complaint: vomiting dizziness shaking flu exposure Time Seen by Provider: 07/24/23 17:33 History of Present Illness Provider Complaint: He states that He has had vomiting, dizziness, and chilling since yesterday. Related Data Home Medications Medication Instructions Recorded Confirmed buprenorphine 8 mg-naloxone 2 mg 1 tab sublingual DAILY 07/06/23 07/24/23 sublingual tablet bupropion HCl 150 mg 24 hr tablet, 150 mg PO DAILY 07/24/23 07/24/23 extended release (Wellbutrin XL) Previous Rx's Medication Instructions Recorded ondansetron 4 mg disintegrating 4 mg PO Q8H PRN Nausea #12 tabs 07/24/23 tablet Allergies Allergy/AdvReac Type Severity Reaction Status Date / Time levofloxacin [From LEVAQUIN] Allergy Intermediate I-RASH Verified 07/24/23 17:49 Milk Containing Products Allergy Verified 07/24/23 17:49 (Dairy) [Milk Containing Products] [facility] Disclaimer: The information contained in this section may have been updated after the patient was seen, as this information can be updated by other users. Social History Smoking Status: Current every day smoker tobacco type: cigarettes packs per day: 1 alcohol intake: never substance use type: denies use current occupational status: other Travel in the last 8 weeks: None ROS Obtained: Yes All systems reviewed & no additional complaints except as documented Constitutional Constitutional: Reports chills and Reports fever(s) Eyes Eyes: Denies eye discharge ENT Ears, Nose, Mouth, and Throat: Reports as per HPI Cardiovascular Cardiovascular: Denies chest pain Respiratory Respiratory: Denies chest congestion and Reports cough Gastrointestinal Gastrointestingal: Reports nausea; Denies abdominal pain, constipation, cramping, diarrhea or vomiting Musculoskeletal Musculoskeletal: Denies arthralgias Integumentary/Breasts Skin/Breast: Denies rash Neurologic Neurologic: Denies paresthesias Physical Exam General General appearance: alert and in no apparent distress Head Head exam: atraumatic and normocephalic Eye Eye exam: Present normal appearance, PERRL and EOMI ENT ENT exam: Present normal exam, normal oropharynx, mucous membranes moist, TM's normal bilaterally and normal external ear exam Neck Neck exam: Present normal inspection, full ROM and trachea midline; Absent tenderness, meningismus or lymphadenopathy Chest Chest inspection: Present normal inspection and symmetric chest wall rise; Absent tenderness, rash or abscess Respiratory Respiratory exam: Present normal lung sounds bilaterally; Absent respiratory distress, wheezes or stridor Cardiovascular Cardiovascular exam: Present regular rate and normal rhythm; Absent irregular rhythm, systolic murmur, diastolic murmur or JVD Abdominal Exam Abdominal exam: Present soft, normal bowel sounds and hyperactive bowel sounds; Absent distention, tenderness, guarding, rebound, rigidity, psoas sign, obturator sign, heel tap sign, Riley's sign, Rovsing's sign or tenderness at McBurney's Point Extremities Exam Extremities exam: Present normal inspection and full ROM; Absent tenderness Back Exam Back exam: Present normal inspection and full ROM; Absent tenderness, CVA tenderness (R) or CVA tenderness (L) Neurological Exam Neurological exam: Present alert, oriented X3 and CN II-XII intact Psychiatric Psychiatric exam: Present normal affect and normal mood Skin Skin exam: Present warm, dry, intact and normal color Lymphatic Lymphatic Findings: no adenopathy Medical Decision Making Medical Records Medical records reviewed: No I reviewed the patient's medical records. Aryan Inquiry Pt receiving controlled substance: No Lab Data Lab results reviewed: Yes I reviewed the patient's lab results.
[2023-07-24 17:49] LABS: UTC Influenza A Antigen Negative (Negative); UTC Influenza B Antigen Negative (Negative)
[2023-07-24 18:11] VITALS: BP 113/78; PULSE 78; RESP 18; TEMP 36.4; O2SAT 100
[2023-07-24 18:22] LABS: Coronavirus 19, PCR Not Detected (NotDetected); Influenza A, PCR Not Detected (NotDetected); Influenza B, PCR Not Detected (NotDetected)
--- NOTE | 2023-07-24 19:58 | PC.NURSE ---
Tried to call pt about results and unable to leave message.
== END 2023-07-24 18:11 | disposition home or self-care (01) ==
PROVIDERS: Emergency Provider Nurse Practitioner Family
DX: A08.4 Viral intestinal infection, unspecified (principal); R11.2 Nausea with vomiting, unspecified; R42 Dizziness and giddiness; F17.210 Nicotine dependence, cigarettes, uncomplicated; B34.9 Viral infection, unspecified
CPT/HCPCS: 87636; 87804; 99212; 99214; G0463

== ENCOUNTER 2024-03-21 16:35 | Emergency (ER) | payer MEDICAID, SELFPAY ==
[2024-03-21 16:55] VITALS: BP 134/81; PULSE 85; RESP 17; TEMP 36.8; O2SAT 98; BMI 26.0
--- NOTE | 2024-03-21 17:08 | EXP.UTC ---
Discharge Plan Disposition Patient Disposition: Home, Self-Care Condition: Good Prescriptions Prescriptions: New lidocaine [Lidocaine Pain Relief] 4 % adhesive patch,medicated 1 patch topical DAILY PRN (Reason: pain) Qty: 10 0RF Rx Instructions: apply patch leave on for 12 hours then remove for 12 hours methocarbamol 500 mg tablet 500 mg PO TID PRN (Reason: muscle spasm) Qty: 12 0RF Referrals Follow up/Referrals: Lucero Myers APRN [Primary Care Provider] - See instructions Activity Restrictions/Add. Instructions Additional Instructions/Restrictions: Use lidocaine patches as prescribed *Ibuprofen macrina 6 hours with meal as needed for pain/inflammation *Not additional anti-inflammatory like motrin, aleve, advil with the above amount of ibuprofen. You can still take Tylenol every 4 hours as needed if you need something else for pain *Ice 20 minutes every 2 hours for the first 48 hours after the initial injury followed by moist heat every 20 minutes 3-4 times a day to affected area *Muscle relaxer every 8 hours as needed for muscle spasms but remember, it WILL cause drowsiness You cannot take it and work, drive, operate machinery or care for small children. *Keep this area active, no movement leads to more stiffness, However take it easy and avoid heavy lifting pushing or pulling *Follow up with you family doctor if no improvement for further treatment Clinical Impressions Clinical Impression: Low back pain Stand Alone Forms Stand Alone Forms: Work/School Release Instructions Patient Instructions: DI for Low Back Pain, Methocarbamol Print Language Print Language: Monegasque Discharge ED Provider: Lula Langley [facility] General Stated complaint: back pain Mode of Arrival: Ambulatory Source of Information: Patient Limitations: No Limitations Time Seen by Provider: 03/21/24 17:08 Description of Symptoms (Recalled from Triage Doc. 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 and has lots of back problems States that he does a lot of lifting pulling and tugging and he woke up with pain/spasms in his lower back this morning States that his mattress is bad and not sure if that caused his back to start hurting or if he may have pulled something when he was lifting and moving stuff at home Denies known injury, denies loss of control of bowel or bladder denies urinary symptoms Related Data Previous Rx's ?Medication ?Instructions ?Recorded lidocaine 4 % topical patch 1 patch topical DAILY PRN pain #10 03/21/24 (Lidocaine Pain Relief) ea methocarbamol 500 mg tablet 500 mg PO TID PRN muscle spasm #12 03/21/24 tabs Allergies Allergy/AdvReac Type Severity Reaction Status Date / Time levofloxacin (From LEVAQUIN) Allergy Intermediate I-RASH Verified 07/24/23 17:49 Milk Containing Products Allergy Verified 07/24/23 17:49 (Dairy) (Milk Containing Products) Worker's Comp Is this a Worker's Comp case?: No [facility] Disclaimer: The information contained in this section may have been updated after the patient was seen, as this information can be updated by other users. Social History Smoking Status: Current every day smoker tobacco type: cigarettes packs per day: 1 alcohol intake: never substance use type: denies use current occupational status: other Travel in the last 8 weeks: None Have you lived/traveled outside US in past 30 days?: No Contact w/someone who lives/traveled outside US past 30 days?: No Exposure to someone with infectious disease in past 14 days?: No Do you have a fever (greater than 100.4 F or 38 C)?: No Have you tested positive for COVID-19: No Exposed to someone with COVID-19 in past 14 days?: No Do you have a sore throat?: No Do you have a cough?: No Do you have any weakness?: No Do you have any diarrhea?: No Are you experiencing any unusual bleeding?: No Do you have any muscle aches/pain?: No Do you have any abdominal pain?: No Are you experiencing loss of taste or smell?: No ROS Obtained: Yes All systems reviewed & no additional complaints except as documented and Yes Systems reviewed as appropriate & no additional complaints except as documented Constitutional Constitutional: Reports system reviewed and no additional complaints, except as documented and Reports as per HPI ENT Ears, Nose, Mouth, and Throat: Reports system reviewed and no additional complaints, except as documented and Reports as per HPI Cardiovascular Cardiovascular: Reports system reviewed and no additional complaints, except as documented and Reports as per HPI Respiratory Respiratory: Reports system reviewed and no additional complaints, except as documented and Reports as per HPI Gastrointestinal Gastrointestingal: Reports system reviewed and no additional complaints, except as documented and as per HPI Genitourinary Male Genitourinary: Reports system reviewed and no additional complaints, except as documented and Reports as per HPI Musculoskeletal Musculoskeletal: Reports system reviewed and no additional complaints, except as documented, Reports as per HPI and Reports back pain (reports spasm like pain in his low back denies radiation of pain) Physical Exam General General appearance: alert and in no apparent distress ENT ENT exam: Present mucous membranes moist Respiratory Respiratory exam: Present normal lung sounds bilaterally; Absent respiratory distress or wheezes Cardiovascular Cardiovascular exam: Present regular rate, normal rhythm and normal heart sounds Back Exam Back exam: Present tenderness and muscle spasm Back 1 view image: 1. reports spasm like pain worse with movement and bending, denies radiation of pain denies loss of control of bowel or bladder and denies urinary symptom scoliosis noted Neurological Exam Neurological exam: Present alert, oriented X3 and normal gait Medical Decision Making Medical Records Screening: Per USPSTF and CDC recommendations, given the prevalence of disease in our region, it is our hospital?s policy to screen for HIV and viral Hepatitis for all patients aged 18 and over and those with ongoing risk factors. Aryan Inquiry Pt receiving controlled substance: No Aryan was queried for this patient: No Vital Signs: 03/21/24 16:55 Temperature 98.3 F Temperature Source Oral Pulse Rate [Left Brachial] 85 Respiratory Rate 17 Blood Pressure [Left Arm] 134/81 Blood Pressure Mean [Left Arm] 98 Blood Pressure Source [Left Arm] Automatic Cuff Blood Pressure Position [Left Arm] Sitting 02 Sat by Pulse Oximetry 98 Oxygen Delivery Method Room Air Medical Decision Narrative: Discussed Toradol injection for pain and patient declined
[2024-03-21 17:29] VITALS: BP 134/81; PULSE 85; RESP 17; TEMP 36.8; O2SAT 98
== END 2024-03-21 17:33 | disposition home or self-care (01) ==
PROVIDERS: Emergency Provider Nurse Practitioner; PCP Nurse Practitioner Family
DX: M54.50 Low back pain, unspecified (principal)
CPT/HCPCS: 99212; G0381

== ENCOUNTER 2024-06-04 17:21 | Emergency (ER) | payer MEDICAID, SELFPAY ==
--- NOTE | 2024-06-04 17:23 | HMH.EDGENADL ---
Discharge Plan Disposition Patient Disposition: Home, Self-Care Condition: Good Prescriptions Prescriptions: New sulfamethoxazole-trimethoprim [Bactrim DS] 800-160 mg tablet 1 tab PO BID 5 Days Qty: 10 0RF doxycycline hyclate 100 mg capsule 100 mg PO BID 10 Days Qty: 20 0RF Referrals Follow up/Referrals: Charlie Gairbay II, MD [Staff Physician] - See instructions (Constipation) Edd Maier MD [Referring] - See instructions (Dysuria) Provider,MD Bibi [Primary Care Provider] - See instructions Activity Restrictions/Add. Instructions Additional Instructions/Restrictions: I provided you a disimpaction sheet. Please give yourself a full day to perform it. If you have continued new or worsening signs or symptoms follow-up with your PCP or return to the ER as needed. Have also referred you to gastroenterology for evaluation of causes of constipation as well as urology for difficulty starting a stream Clinical Impressions Clinical Impression: Dysuria Constipation Qualifiers: Constipation type: unspecified constipation type Qualified Code(s): K59.00 - Constipation, unspecified Stand Alone Forms Stand Alone Forms: Work/School Release Instructions Patient Instructions: DI for Urinary Tract Infection (UTI), DI for Urinary Tract Infection in Children Print Language Print Language: Macedonian Discharge ED Provider: Harper Nino General Adult HPI <CHERYL Ozuna - Last Filed: 06/04/24 19:03> General Chief complaint: Urogenital-Male Stated complaint: painful urination Time Seen by Provider: 06/04/24 17:22 History of Present Illness HPI narrative: Patient presents for evaluation of a urinary problem. Patient reports that the last 2 months he has had difficulty with frequency of urination micturition and urgency. Patient reports that he has been tested for STDs and it is negative and urinalysis previously has been also negative for any acute infection however today he began having difficulty with urination and was straining and he began feeling left flank pain. He denies fever chills hemoptysis hematochezia melena nausea vomiting diarrhea. He reports tolerance of oral intake and reports he is having bowel movements and passing flatus. Related Data Previous Rx's ?Medication ?Instructions ?Recorded doxycycline hyclate 100 mg capsule 100 mg PO BID 10 days #20 caps 06/04/24 sulfamethoxazole 800 1 tab PO BID 5 days #10 tabs 06/04/24 mg-trimethoprim 160 mg tablet (Bactrim DS) Allergies Allergy/AdvReac Type Severity Reaction Status Date / Time levofloxacin (From LEVAQUIN) Allergy Intermediate I-RASH Verified 06/04/24 17:56 Milk Containing Products Allergy Rash Verified 06/04/24 17:56 (Dairy) (Milk Containing Products) [facility] <CHERYL Ozuna - Last Filed: 06/04/24 19:03> [facility] Disclaimer: The information contained in this section may have been updated after the patient was seen, as this information can be updated by other users. Social History Smoking Status: Current every day smoker tobacco type: cigarettes packs per day: 1 alcohol intake: never substance use type: denies use current occupational status: other Travel in the last 8 weeks: None Have you lived/traveled outside US in past 30 days?: No Contact w/someone who lives/traveled outside US past 30 days?: No Exposure to someone with infectious disease in past 14 days?: No Do you have a fever (greater than 100.4 F or 38 C)?: No Have you tested positive for COVID-19: No Exposed to someone with COVID-19 in past 14 days?: No Do you have a sore throat?: No Do you have a cough?: No Do you have any weakness?: No Do you have any diarrhea?: No Are you experiencing any unusual bleeding?: No Do you have any muscle aches/pain?: No Do you have any abdominal pain?: No Are you experiencing loss of taste or smell?: No Other Medical History Have you received the Flu Vaccine for this season: No Have you received the Pneumonia Vaccine: No <CHERYL Ozuna - Last Filed: 06/04/24 19:03> ROS Obtained: Yes Systems reviewed as appropriate & no additional complaints except as documented Physical Exam <CHERYL Ozuna - Last Filed: 06/04/24 19:03> General General appearance: alert and in no apparent distress Respiratory Respiratory exam: Present normal lung sounds bilaterally Cardiovascular Cardiovascular exam: Present regular rate Neurological Exam Neurological exam: Present alert and oriented X3 Medical Decision Making <CHERYL Ozuna - Last Filed: 06/04/24 19:03> Medical Records Medical records reviewed: Yes I reviewed the patient's medical records. Screening: Per USPSTF and CDC recommendations, given the prevalence of disease in our region, it is our hospital?s policy to screen for HIV and viral Hepatitis for all patients aged 18 and over and those with ongoing risk factors. Aryan Inquiry Pt receiving controlled substance: No Vital Signs: 06/04/24 17:30 06/04/24 17:45 06/04/24 18:00 Temperature 98.0 F Temperature Source Oral Pulse Rate 80 75 Pulse Rate [Left Radial] 85 Respiratory Rate 13 Blood Pressure 128/79 119/84 Blood Pressure [Right Arm] 139/88 Blood Pressure Mean 91 Blood Pressure Mean [Right Arm] 105 Blood Pressure Source Blood Pressure Position 02 Sat by Pulse Oximetry 100 98 98 Oxygen Delivery Method Room Air Room Air Room Air 06/04/24 19:27 Temperature 98.2 F Temperature Source Oral Pulse Rate 88 Pulse Rate [Left Radial] Respiratory Rate 20 Blood Pressure 137/88 Blood Pressure [Right Arm] Blood Pressure Mean Blood Pressure Mean [Right Arm] Blood Pressure Source Automatic Cuff Blood Pressure Position Sitting 02 Sat by Pulse Oximetry Oxygen Delivery Method Room Air Lab Data Lab results reviewed: Yes I reviewed the patient's lab results. Lab Results 06/04/24 18:32: Urine Color Yellow, Urine Appearance Clear, Urine pH 6.0, Ur Specific Neche >= 1.030, Urine Protein Negative, Urine Glucose (UA) Negative, Urine Ketones Negative, Urine Blood Negative, Urine Nitrate Negative, Urine Bilirubin Negative, Urine Urobilinogen 0.2, Ur Leukocyte Esterase Negative, Urine RBC Occasional, Urine WBC 10-20, Ur Squamous Epith Cells 3-5, Urine Bacteria 1+, Urine Mucus 4+ Orders (Tests/Meds): ED MEDICATIONS Discontinued Medications Generic Name Dose Route Start Last Admin Trade Name Freq PRN Reason Stop Dose Admin Acetaminophen 1,000 mg 06/04/24 17:56 06/04/24 19:08 Acetaminophen 1,000mg/100ml Vial IV 06/04/24 17:57 Not Given ONCE ONE Ceftriaxone Sodium 500 mg 06/04/24 19:04 06/04/24 19:15 Ceftriaxone 500mg Vial IM 06/04/24 19:05 500 mg ONCE ONE Administration Doxycycline Hyclate 100 mg 06/04/24 19:04 06/04/24 19:15 Doxycycline Hycl 100 Mg Tablet PO 06/04/24 19:05 100 mg ONCE ONE Administration Ketorolac Tromethamine 15 mg 06/04/24 17:56 06/04/24 19:08 Ketorolac 30mg/Ml Vial IV 06/04/24 17:57 Not Given ONCE ONE Lidocaine HCl 0 ml 06/04/24 19:04 06/04/24 19:13 Lidocaine 1% 5ml Pf Vial IM 06/04/24 19:05 5 ml ONCE ONE Administration Trimethoprim/Sulfamethoxazole 1 each 06/04/24 19:05 06/04/24 19:15 Sulfa/Trimethoprim 1 Tablet PO 06/04/24 19:06 1 each ONCE ONE Administration ORDERS Category Date Time Status CT abdomen pelvis wo con Stat Cat Scan 06/04/24 17:55 Completed UA [Urinalysis and Microscopic] Stat Lab 06/04/24 18:32 Completed Urine Chlam/Gono/Trich, KOMAL Stat Lab 06/04/24 18:32 Received Urine Culture Stat Micro 06/04/24 18:32 Received Medical Decision Narrative: In summary patient is a 3-year-old male who presents to the emergency department for evaluation of dysuria and left flank pain. Patient is hemodynamically stable upon arrival, afebrile. Physical exam is remarkable for mild suprapubic tenderness but there is no rebound or guarding or rigidity. Bowel sounds normal active. Patient does have CVA tenderness to percussion of the left negative on the right. Differential diagnosis includes kidney stone versus urinary tract infection versus prostatitis versus cystitis etc. Initial workup was considered including labs and contrasted CT studies however patient has a history of IV drug use and is a difficult stick and via patient direct incision making declined blood work. Via shared decision making I offered to do a noncontrasted study as well as urinalysis however if we found anything concerning patient did agree to IV placement utilizing ultrasound necessary.. Initial interventions Tylenol for now as patient does not have IV access currently. Initial workup reviewed by me and his urinalysis is protein negative glucose negative ketones negative blood negative nitrite negative leukocyte Estrace negative however microscopic exam shows occasional red blood cells 10-20 white cells 3-5 squamous epithelial cells and 1+ bacteria that could be consistent with a urinary tract infection. My informal interpretation of his CT scan abdomen pelvis shows a nondistended bladder and no hydronephrosis or stone no stranding around the kidney although was a noncontrasted study and a significant stool burden in the proximal colon but no colon wall thickening or stranding consistent with constipation. Upon repeat evaluation patient reported some improvement in his discomfort but he still has urge urination. Given this patient is appropriate for discharge with a disimpaction sheet and instructions on constipation and how to avoid it going forward,. Given patient has high risk history we will treat him for STIs with 500 Rocephin IM and oral doxycycline and Levaquin with first doses given here. And oral doxycycline and Levaquin with first doses given here. Patient vies follow-up with PCP for continuing or worsening symptoms. I have referred the patient both to gastroenterology for his constipation as well as urology for his dysuria. <Harper Nino, DO - Last Filed: 06/04/24 21:01> Vital Signs: 06/04/24 17:30 06/04/24 17:45 06/04/24 18:00 Temperature 98.0 F Temperature Source Oral Pulse Rate 80 75 Pulse Rate [Left Radial] 85 Respiratory Rate 13 Blood Pressure 128/79 119/84 Blood Pressure [Right Arm] 139/88 Blood Pressure Mean 91 Blood Pressure Mean [Right Arm] 105 Blood Pressure Source Blood Pressure Position 02 Sat by Pulse Oximetry 100 98 98 Oxygen Delivery Method Room Air Room Air Room Air 06/04/24 19:27 Temperature 98.2 F Temperature Source Oral Pulse Rate 88 Pulse Rate [Left Radial] Respiratory Rate 20 Blood Pressure 137/88 Blood Pressure [Right Arm] Blood Pressure Mean Blood Pressure Mean [Right Arm] Blood Pressure Source Automatic Cuff Blood Pressure Position Sitting 02 Sat by Pulse Oximetry Oxygen Delivery Method Room Air Lab Data Lab Results 06/04/24 18:32: Urine Color Yellow, Urine Appearance Clear, Urine pH 6.0, Ur Specific Neche >= 1.030, Urine Protein Negative, Urine Glucose (UA) Negative, Urine Ketones Negative, Urine Blood Negative, Urine Nitrate Negative, Urine Bilirubin Negative, Urine Urobilinogen 0.2, Ur Leukocyte Esterase Negative, Urine RBC Occasional, Urine WBC 10-20, Ur Squamous Epith Cells 3-5, Urine Bacteria 1+, Urine Mucus 4+ Orders (Tests/Meds): ED MEDICATIONS Discontinued Medications Generic Name Dose Route Start Last Admin Trade Name Freq PRN Reason Stop Dose Admin Acetaminophen 1,000 mg 06/04/24 17:56 06/04/24 19:08 Acetaminophen 1,000mg/100ml Vial IV 06/04/24 17:57 Not Given ONCE ONE Ceftriaxone Sodium 500 mg 06/04/24 19:04 06/04/24 19:15 Ceftriaxone 500mg Vial IM 06/04/24 19:05 500 mg ONCE ONE Administration Doxycycline Hyclate 100 mg 06/04/24 19:04 06/04/24 19:15 Doxycycline Hycl 100 Mg Tablet PO 06/04/24 19:05 100 mg ONCE ONE Administration Ketorolac Tromethamine 15 mg 06/04/24 17:56 06/04/24 19:08 Ketorolac 30mg/Ml Vial IV 06/04/24 17:57 Not Given ONCE ONE Lidocaine HCl 0 ml 06/04/24 19:04 06/04/24 19:13 Lidocaine 1% 5ml Pf Vial IM 06/04/24 19:05 5 ml ONCE ONE Administration Trimethoprim/Sulfamethoxazole 1 each 06/04/24 19:05 06/04/24 19:15 Sulfa/Trimethoprim 1 Tablet PO 06/04/24 19:06 1 each ONCE ONE Administration ORDERS Category Date Time Status CT abdomen pelvis wo con Stat Cat Scan 06/04/24 17:55 Completed UA [Urinalysis and Microscopic] Stat Lab 06/04/24 18:32 Completed Urine Chlam/Gono/Trich, KOMAL Stat Lab 06/04/24 18:32 Received Urine Culture Stat Micro 06/04/24 18:32 Received Medical Decision Narrative: In summary patient is a 33-year-old male who presents to the emergency department for evaluation of dysuria and left flank pain. Patient is hemodynamically stable upon arrival, afebrile. Physical exam is remarkable for mild suprapubic tenderness but there is no rebound or guarding or rigidity. Bowel sounds normal active. Patient does have CVA tenderness to percussion of the left negative on the right. Differential diagnosis includes kidney stone versus urinary tract infection versus prostatitis versus cystitis etc. Initial workup was considered including labs and contrasted CT studies however patient has a history of IV drug use and is a difficult stick and via patient direct incision making declined blood work. Via shared decision making I offered to do a noncontrasted study as well as urinalysis however if we found anything concerning patient did agree to IV placement utilizing ultrasound necessary.. Initial interventions Tylenol for now as patient does not have IV access currently. Initial workup reviewed by me and his urinalysis is protein negative glucose negative ketones negative blood negative nitrite negative leukocyte Estrace negative however microscopic exam shows occasional red blood cells 10-20 white cells 3-5 squamous epithelial cells and 1+ bacteria that could be consistent with a urinary tract infection. My informal interpretation of his CT scan abdomen pelvis shows a nondistended bladder and no hydronephrosis or stone no stranding around the kidney although was a noncontrasted study and a significant stool burden in the proximal colon but no colon wall thickening or stranding consistent with constipation. Upon repeat evaluation patient reported some improvement in his discomfort but he still has urge urination. Given this patient is appropriate for discharge with a disimpaction sheet and instructions on constipation and how to avoid it going forward,. Given patient has high risk history we will treat him for STIs with 500 Rocephin IM and oral doxycycline and Levaquin with first doses given here. And oral doxycycline and Levaquin with first doses given here. Patient vies follow-up with PCP for continuing or worsening symptoms. I have referred the patient both to gastroenterology for his constipation as well as urology for his dysuria. DO Trung: I was consulted by the [facility], and we discussed the complexity of the problems being addressed. I approved the treatment and management plan for this patient's care in the emergency department, thus performing a substantive portion of the medical decision making. Harper Nino DO Critical Care <CHERYL Ozuna - Last Filed: 06/04/24 19:03> Critical Care Time Critical Care Time: No
[2024-06-04 17:30] VITALS: BP 139/88; PULSE 85; RESP 13; TEMP 36.7; O2SAT 100; BMI 24.7
[2024-06-04 17:45] VITALS: BP 128/79; PULSE 80; O2SAT 98
--- NOTE | 2024-06-04 17:55 | CT_ITS ---
PROCEDURE INFORMATION: Exam: CT Abdomen And Pelvis Without Contrast Exam date and time: 06/04/2024 6:15 PM Age: 33 years old Clinical indication: Other: Flank pain, symptoms of urinary retention TECHNIQUE: Imaging protocol: Computed tomography of the abdomen and pelvis without contrast. Radiation optimization: All CT scans at this facility use at least one of these dose optimization techniques: automated exposure control; mA and/or kV adjustment per patient size (includes targeted exams where dose is matched to clinical indication); or iterative reconstruction. COMPARISON: CR XR CHEST 2V 05/14/2021 11:57 PM FINDINGS: Lungs: Left lower lobe calcified granulomas measuring up to 1.1 cm. Few scattered subpleural pulmonary micronodules measuring up to 2 mm. Liver: Normal. No mass. Gallbladder and biliary ducts: Normal. No calcified stones. No ductal dilation. Pancreas: Normal. No ductal dilation. Spleen: Calcified granulomas. No splenomegaly. Adrenal glands: Normal. No mass. Kidneys and ureters: No stones. No hydronephrosis. Stomach and bowel: Several nondistended fluid-filled loops of small bowel. Mildly prominent gas and stool filled proximal colon. No obstruction. No mucosal thickening. Appendix: Suboptimally visualized. No evidence of appendicitis. Intraperitoneal space: Unremarkable. No free air. No significant fluid collection. Vasculature: Unremarkable. No abdominal aortic aneurysm. Lymph nodes: Calcified left paratracheal, left hilar and left interlobar lymph nodes. Urinary bladder: Unremarkable as visualized. Reproductive: Unremarkable as visualized. Bones/joints: Dextroconvex scoliosis. No acute fracture. Mild degenerative changes. Soft tissues: Unremarkable. IMPRESSION: 1. No urolithiasis or hydronephrosis. Nondistended urinary bladder. 2. Several nondistended fluid-filled loops small bowel, a nonspecific finding, although can be seen with enteritis. 3. Mildly prominent gas and stool filled proximal colon, correlate for constipation. 4. Chronic granulomatous changes within the lungs. Few scattered subpleural pulmonary micronodules measuring up to 2 mm. For patients at low risk (minimal or absent history of smoking and of other known risk factors), no routine follow-up is indicated. For patients at high risk (history of smoking or of other known risk factors), consider optional CT Chest at 12 months. (Reference: Christine) REFERENCES: Christine Bird et al. Guidelines for Management of Incidental Pulmonary Nodules Detected on CT Images: From the [employer] 2017. Radiology. 2017;284(1):228-243.
[2024-06-04 18:00] VITALS: BP 119/84; PULSE 75; O2SAT 98
--- NOTE | 2024-06-04 18:10 | PC.NURSE ---
attempted to get IV access and blood work for pt. stuck pt twice. pt refused any more sticks at this time. notified.
--- NOTE | 2024-06-04 18:15 | PC.NURSE ---
pt is at ct scan at this time
[2024-06-04 18:36] LABS: Microscopic, Urine URINE MICROSCOPIC (MICROSCOPIC)
[2024-06-04 18:37] LABS: Appearance,Urine CLEAR (Clear); Bilirubin,Urine Negative (Negative); Blood, Urine Negative (Negative); Color,Urine YELLOW (Yellow); Glucose,Urine (UA) Negative (Negative); Ketones,Urine Negative (Negative); Leukocyte Esterase,Urine Negative (Negative); Nitrate,Urine Negative (Negative); Protein,Urine Negative (Negative); Specific Gravity, Urine >= 1.030 (1.005-1.030); Urobilinogen,Urine 0.2 EU/dl (0.2)
[2024-06-04 18:56] LABS: Bacteria,Urine 1+ /lpf; Mucus,Urine 4+ /lpf; RBC,Urine Occasional #/hpf (0-3)
[2024-06-04] MEDS: LIDOCAINE 1% 5ML PF VIAL IM (19:13)
[2024-06-04] MEDS: SULFA/TRIMETHOPRIM 1 TABLET 1 EACH PO (19:15)
[2024-06-04] MEDS: cefTRIAXone 500MG VIAL 500 MG IM (19:15)
[2024-06-04] MEDS: DOXYCYCLINE HYCL 100 MG TABLET PO (19:15)
[2024-06-04 19:27] VITALS: BP 137/88; PULSE 88; RESP 20; TEMP 36.8; O2SAT 100
[2024-06-06 06:37] LABS: Chlamydia trachomatis Negative (Negative); Neisseria gonorrhoeae Negative (Negative); Trichomonas vaginalis Negative (Negative)
== END 2024-06-04 19:33 | disposition home or self-care (01) ==
PROVIDERS: Emergency Provider Emergency Medicine
DX: R30.0 Dysuria (principal); K59.00 Constipation, unspecified; R35.0 Frequency of micturition; R39.15 Urgency of urination; R30.9 Painful micturition, unspecified; R10.9 Unspecified abdominal pain; F17.210 Nicotine dependence, cigarettes, uncomplicated
CPT/HCPCS: 74176; 81001; 87086; 87491; 87591; 87661; 96372; 99284; J0696